=== PATIENT | female | born 1985 | race Caucasian/White ===

== ENCOUNTER 2019-03-15 08:11 | Inpatient (IN) | payer MEDICAID ==
[~2019-03-15] VITALS: Ht 157.5 cm; Wt 108.9 kg
[2019-03-15] MEDS ORDERED: PNV1TABL76 PO (08:22)
[2019-03-15] MEDS ORDERED: DEXT 5%/LR + PITOCIN 20UNITS/L 1,000 ML IV SCH ×2 (08:31→12:31)
[2019-03-15] MEDS ORDERED: MISOPROSTOL 100MCG TABLET VG PRN (08:45)
[2019-03-15] MEDS ORDERED: CARBOPROST TROMETHAMINE 250 MCG/ML AMPUL IM PRN (08:45)
[2019-03-15] MEDS ORDERED: METHYLERGONOVINE MALEATE 0.2 MG/ML IM PRN (08:45)
[2019-03-15] MEDS: LACTATED RINGERS 1,000 ML IV SCH ×2 (08:57→09:42)
[2019-03-15 09:19] LABS: BASOPHILS % 0.4 % (0.0-2.0); EOSINOPHILS % 0.8 % (0.0-5.0); HEMATOCRIT. 38.7 % (36.0-48.0); HEMOGLOBIN. 12.7 g/dL (12.0-16.0); LYMPHOCYTES % 24.4 % (20.0-50.0); MEAN CORPUSCULAR HEMOGLOBIN 27.5 pg (28.0-32.0); MEAN CORPUSCULAR VOLUME 83.4 fL (81.0-99.0); MEAN PLATELET VOLUME 8.2 fl (7.4-10.4); MONOCYTES % 8.1 % (2.0-8.0); NEUTROPHILS % 66.3 % (40.0-76.0); PLATELET 253 x1000/uL (130-400); RED BLOOD CELL COUNT 4.63 mill/uL (4.2-5.4); RED CELL DISTRIBUTION WIDTH 15.5 % (11.6-14.6)
[2019-03-15 09:20] LABS: CLARITY URINE CLEAR (CLEAR); COLOR URINE YELLOW (YELLOW); KETONES URINE NEGATIVE (NEGATIVE); LEUKOCYTE ESTERASE URINE 1+ (NEGATIVE); NITRITE URINE NEGATIVE (NEGATIVE); OCCULT BLOOD URINE NEGATIVE (NEGATIVE); PH URINE 6.5 (4.5-8.0); PROTEIN URINE NEGATIVE (NEGATIVE); SPECIFIC GRAVITY URINE 1.016 (1.005-1.030); UROBILINOGEN URINE 0.2 E.U./dL (0.2-1.0)
[2019-03-15 09:26] LABS: INR 0.9; PARTIAL THROMBOPLASTIN TIME 30.7 sec (23.4-31.0); PROTHROMBIN TIME 9.7 sec (9.6-11.0)
[2019-03-15 09:53] LABS: *AMPHETAMINES SCREEN URINE NEGATIVE (NEGATIVE); *BARBITURATES SCREEN URINE NEGATIVE (NEGATIVE); *BENZODIAZEPINES SCREEN URINE NEGATIVE (NEGATIVE); *COCAINE SCREEN URINE NEGATIVE (NEGATIVE); OPIATES URINE SCREEN NEGATIVE (NEGATIVE); PHENCYCLIDINE URINE SCREEN NEGATIVE (NEGATIVE)
[2019-03-15 09:54] LABS: CANNABINOID URINE SCREEN NEGATIVE (NEGATIVE); METHADONE URINE SCREEN NEGATIVE (NEGATIVE)
[2019-03-15] MEDS ORDERED: MORPHINE SULFATE/PF 1MG/ML 10ML AMP ONE (11:09)
[2019-03-15] MEDS ORDERED: FENTANYL CITRATE/PF 50MCG/ML 2ML VIAL ONE (11:09)
[2019-03-15] MEDS ORDERED: ONDANSETRON HCL 4MG/2ML INJ ONE (11:49)
[2019-03-15] MEDS ORDERED: KETOROLAC 60MG/2ML VIAL IM ONE (12:06)
[2019-03-15] MEDS ORDERED: DIPHENHYDRAMINE 25MG CAPSULE PO PRN (12:45)
[2019-03-15] MEDS ORDERED: HYDROCODONE/ACETAMINOPHEN 5/325MG TABLET PO PRN (12:45)
[2019-03-15] MEDS ORDERED: LANOLIN OINT 7GM TUBE TOP PRN (12:45)
[2019-03-15] MEDS ORDERED: ONDANSETRON HCL 4MG/2ML INJ IV PRN (12:45)
[2019-03-15] MEDS ORDERED: BISACODYL 10MG SUPP PR PRN (12:45)
[2019-03-15] MEDS ORDERED: IBUPROFEN 400MG TABLET PO PRN (12:45)
[2019-03-15] MEDS ORDERED: HYDROMORPHONE HCL/PF 2MG/ML CPJ IV PRN (12:45)
[2019-03-15] MEDS ORDERED: DIPHENHYDRAMINE 50MG/ML VIAL IV PRN (14:15)
[2019-03-15] MEDS ORDERED: DEXAMETHASONE 10 MG/ML VIAL IV PRN (14:15)
[2019-03-15] MEDS ORDERED: MORPHINE SULFATE 2 MG/ML CPJ (NOT FOR IM USE) IV PRN ×2 (14:15)
[2019-03-15] MEDS ORDERED: FENTANYL CITRATE/PF 50MCG/ML 2ML VIAL IV PRN ×3 (14:15)
[2019-03-15] MEDS ORDERED: MORPHINE SULFATE 4 MG/ML CPJ (NOT FOR IM USE) IV PRN ×2 (14:30)
[2019-03-15 14:50] LABS: HEPATITIS B SURFACE ANTIGEN NEGATIVE
[2019-03-16 02:00] VITALS: BP 105/60
[2019-03-16] MEDS: KETOROLAC 30MG/ML VIAL IV PRN ×2 (02:28→06:46)
[2019-03-16 06:26] LABS: BASOPHILS % 0.3 % (0.0-2.0); HEMATOCRIT. 31.5 % (36.0-48.0); HEMOGLOBIN. 10.7 g/dL (12.0-16.0); LYMPHOCYTES % 18.2 % (20.0-50.0); MEAN CORPUSCULAR VOLUME 82.5 fL (81.0-99.0); MEAN PLATELET VOLUME 7.8 fl (7.4-10.4); MONOCYTES % 8.2 % (2.0-8.0); NEUTROPHILS % 72.3 % (40.0-76.0); PLATELET 213 x1000/uL (130-400); RED BLOOD CELL COUNT 3.81 mill/uL (4.2-5.4); RED CELL DISTRIBUTION WIDTH 15.4 % (11.6-14.6)
[2019-03-16] MEDS ORDERED: LACTATED RINGERS 1,000 ML IV SCH (06:30)
[2019-03-16 08:00] VITALS: BP 100/50
[2019-03-16] MEDS: FERROUS SULFATE 325MG TABLET PO SCH (14:11)
[2019-03-16] MEDS: IBUPROFEN 800MG TABLET PO PRN ×2 (14:11→19:48)
[2019-03-16] MEDS: DOCUSATE SODIUM 100MG CAPSULE PO SCH ×2 (14:11→21:42)
[2019-03-16 16:00] VITALS: BP 88/56
[2019-03-16 19:20] VITALS: BP 96/52
[2019-03-16] MEDS: MAGNESIUM/ALUMINUM HYDROXIDE/SIMETHICONE 30ML UDC PO SCH (21:41)
[2019-03-16] MEDS: SIMETHICONE 80MG TABLET CHEW PO SCH (21:42)
[2019-03-17 00:01] VITALS: BP 100/60
[2019-03-17] MEDS: IBUPROFEN 800MG TABLET PO PRN ×4 (03:38→21:41)
[2019-03-17 04:00] VITALS: BP 103/64
[2019-03-17 09:00] VITALS: BP 101/63
[2019-03-17] MEDS: FERROUS SULFATE 325MG TABLET PO SCH ×2 (11:34→17:28)
[2019-03-17] MEDS: SIMETHICONE 80MG TABLET CHEW PO SCH ×3 (11:34→21:36)
[2019-03-17 16:00] VITALS: BP 97/58
[2019-03-17 19:00] VITALS: BP 115/65
[2019-03-17] MEDS: MAGNESIUM/ALUMINUM HYDROXIDE/SIMETHICONE 30ML UDC PO SCH (21:36)
[2019-03-18] MEDS: IBUPROFEN 800MG TABLET PO PRN (05:18)
[2019-03-18 05:45] VITALS: BP 104/62
[2019-03-18] MEDS ORDERED: HYDR-4001 PO (06:51)
[2019-03-18] MEDS ORDERED: IBUP-2028 PO (06:51)
[2019-03-18 07:30] VITALS: BP 110/62
== END 2019-03-18 11:15 | disposition home or self-care (01) | DRG 540 ==
LOC: 8 EST LDRP 08:11 → 8EST 15:50
PROVIDERS: ADMIT Specialist; ATTEND Specialist
PROC: 10D00Z1 Extraction of Products of Conception, Low, Open Approach (ICD-10-PCS; principal; 2019-03-15)
PROC: 0UB70ZZ Excision of Bilateral Fallopian Tubes, Open Approach (ICD-10-PCS; 2019-03-15)
DX: O34.211 Maternal care for low transverse scar from previous cesarean delivery (principal); E66.01 Morbid (severe) obesity due to excess calories; O99.214 Obesity complicating childbirth; Z30.2 Encounter for sterilization; Z37.0 Single live birth; Z3A.39 39 weeks gestation of pregnancy; Z68.41 Body mass index [BMI] 40.0-44.9, adult
CPT/HCPCS: 36415; 80305; 81003; 86592; 86703; 86762; 86850; 86900; 86920; 87340; 88302; 88307; J1170; J1885; J2270; J2274; J2405; J2590; J3010